=== PATIENT | male | born 1995 | race Caucasian/White ===

== ENCOUNTER 2016-10-15 16:50 | Emergency (ER) | payer BC ==
[~2016-10-15] VITALS: Ht 193 cm; Wt 110.0 kg
--- OUTSIDE RECORDS SUMMARY | 2016-10-15 16:53 | XMS REPORT | Referral Summary ---
Author Author [facility], [facility] Care Organization [facility] Address Unknown Phone Unavailable Care Team Providers Care Capacitor Inspector Name Role Phone No PCP, States Primary Care Physician [phone] Encounter VC Date(s): 07/31/16 - 07/31/16 [facility] [address] [place] [address] Discharge Diagnosis: Abscess of right groin Discharge Disposition: 01-Home or Self Care Attending Physician: Bora Corrales PA-C Admitting Physician: Bora Corrales PA-C Vital Signs Most recent to 1 oldest [Reference Range]: Temperature Tympanic 36.7 degC [36.6-38.1 degC] (07/31/16 3:54 PM) Peripheral Pulse 103 bpm Rate [60-100 bpm] *HI* (07/31/16 3:54 PM) SpO2 98 % (07/31/16 3:54 PM) Problem List Condition Effective Dates Status Health Status Informant Obesity(Confirmed) Active patient Tobacco Active patient user(Confirmed) Allergies, Adverse Reactions, Alerts No Known Medication Allergies Medications aspirin 81 mg oral tablet 81 mg 1 tabs, Oral, Daily, # 30 tabs, 0 Refill(s) Start Date: 07/28/16 Status: Ordered Keflex 500 mg oral capsule 500 mg 1 caps, Oral, QID, X 7 days, # 28 caps, 0 Refill(s), Pharmacy: [id number], 1 caps Oral QID,x7 days Start Date: 07/28/16 Stop Date: 08/04/16 Status: Ordered Results No data available for this section Immunizations No data available for this section Procedures No data available for this section Social History Social History Type Response Smoking Status Current every day smoker; Type: Cigarettes; Tobacco use per day: 1/2 pack or more Assessment and Plan Extracted from: Title: R groin wound Author: Bora Corrales PA-C Date: 07/31/16 Assessment/Plan Abscess of right groin At this point continue with the treatment finished the Bactrim and the Keflex. If he develops severe diarrhea, blood with diarrhea, bowel arteries to follow-up for assessment if his fever returns,if he has new symptoms; follow-up for assessment otherwise follow-up as needed.Work provided work.
--- OUTSIDE RECORDS SUMMARY | 2016-10-15 16:53 | XMS REPORT | Referral Summary ---
Author Author [facility] Organization [facility] Address Unknown Phone Unavailable Care Team Providers Care Dye House Helper Name Role Phone No PCP, States Primary Care Physician [phone] Encounter VC Date(s): 03/08/15 - 03/08/15 [facility] [address] [place] [address] Discharge Disposition: 01-Home or Self Care Attending Physician: Cachorro Barnhart MD Admitting Physician: Cachorro Barnhart MD Vital Signs Most recent to 1 oldest [Reference Range]: Temperature Tympanic 36.8 degC [36.6-38.1 degC] (03/08/15 1:18 PM) Peripheral Pulse 84 bpm Rate [60-100 bpm] (03/08/15 1:18 PM) Respiratory Rate 16 br/min [14-20 br/min] (03/08/15 1:18 PM) Blood Pressure 130/80 mmHg [90-140/60-90 mmHg] (03/08/15 1:18 PM) Problem List Condition Effective Dates Status Health Status Informant Obesity(Confirmed) Active patient Tobacco Active patient user(Confirmed) Allergies, Adverse Reactions, Alerts No Known Medication Allergies Medications naproxen 500 mg oral tablet 500 mg 1 tabs, Oral, BID, # 60 tabs, 0 Refill(s), Pharmacy: [id number], 1 tabs Oral BID,x30 days Start Date: 03/08/15 Stop Date: 04/07/15 Status: Ordered Results No data available for this section Immunizations No data available for this section Procedures No data available for this section Social History Social History Type Response Smoking Status Current some day smoker; Type: Cigarettes Assessment and Plan Extracted from: Title: Office Visit Note Author: Cachorro Barnhart MD Date: 03/08/15 Assessment/Plan Contusion of left shoulder Contusion, hip Wrist contusion Plan: I do not think you have any fractures. You have recently got a new job and you're worried about your ability to perform. I did write restrictions to the left more than 10 pounds with your arms or stand for more than 20 minutes per hour. If you're having problems getting these tasks then return. I did order Naprosyn. Take with food. Follow-up in one week if you 're not improving. Orders: naproxen, 500 mg 1 tabs, Oral, BID, # 60 tabs, 0 Refill(s), Pharmacy: [id number], 1 tabs Oral BID,x30 days
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
--- OUTSIDE RECORDS SUMMARY | 2016-10-15 16:53 | XMS REPORT | Referral Summary ---
Author Author [facility], [facility] Organization [facility] Address Unknown Phone Unavailable Care Team Providers Care Supervisor Maintenance Name Role Phone No PCP, [facility] Primary Care Physician [phone] Encounter VC Date(s): 07/21/16 - 07/21/16 [facility] [address] [place] [address]- Discharge Diagnosis: Cellulitis of right thigh Discharge Diagnosis: Tobacco use Discharge Disposition: 01-Home or Self Care Attending Physician: Bora Corrales PA-C Admitting Physician: Bora Corrales PA-C Vital Signs Most recent to 1 oldest [Reference Range]: Temperature Tympanic 37 degC [36.6-38.1 degC] (07/21/16 4:04 PM) Peripheral Pulse 125 bpm Rate [60-100 bpm] *HI* (07/21/16 4:04 PM) Blood Pressure 124/70 mmHg [90-140/60-90 mmHg] (07/21/16 4:04 PM) SpO2 98 % (07/21/16 4:04 PM) Problem List Condition Effective Dates Status Health Status Informant Obesity(Confirmed) Active patient Tobacco Active patient user(Confirmed) Allergies, Adverse Reactions, Alerts No Known Medication Allergies Medications Bactrim DS 800 mg-160 mg oral tablet 1 tabs, Oral, BID, X 10 days, # 20 tabs, 0 Refill(s), Pharmacy: [facility] [place] [id number] Start Date: 07/21/16 Stop Date: 07/31/16 Status: Ordered Results No data available for this section Immunizations No data available for this section Procedures No data available for this section Social History Social History Type Response Smoking Status Current every day smoker; Type: Cigarettes; Tobacco use per day: 1/2 pack or more Assessment and Plan Extracted from: Title: right thigh Author: Bora Corrales PA-C Date: 07/21/16 Assessment/Plan Cellulitis of right thigh BactrimDS 10 days was initiated. When abscess forms or if it forms he needs to follow-up for draining. If he develops lymph nodeswelling fever significant streaking or worsening infection he needs to follow-up for additional assessment. Tylenol/Ibuprofen as needed for fever or pain. Recommend supportive care. Rest. Practice good hand hygiene. Increase fluids. FU with PCP if not improving, worsening symptoms, or as needed. Questions were answered. Patient verbalized understanding. Patient left in stable condition. Tobacco use Taking cessation recommended.
--- OUTSIDE RECORDS SUMMARY | 2016-10-15 16:53 | XMS REPORT | Referral Summary ---
Author Author [facility], [facility] Care Organization [facility] Address Unknown Phone Unavailable Care Team Providers Care Police Superintendent Name Role Phone No PCP, States Primary Care Physician [phone] Encounter Date(s): 12/30/14 - 12/30/14 [facility] [address] [place] [address] Discharge Diagnosis: Abscess of arm, left Discharge Disposition: 01-Home or Self Care Attending Physician: Venkatesh Madrigal MD Admitting Physician: Venkatesh Madrigal MD Vital Signs Most recent to 1 oldest [Reference Range]: Temperature Tympanic 36.8 degC [36.6-38.1 degC] (12/30/14 7:14 PM) Peripheral Pulse 99 bpm Rate [60-100 bpm] (12/30/14 7:14 PM) Blood Pressure 108/80 mmHg [90-140/60-90 mmHg] (12/30/14 7:14 PM) SpO2 100 % (12/30/14 7:14 PM) Problem List Condition Effective Dates Status Health Status Informant Obesity(Confirmed) Active patient Tobacco Active patient user(Confirmed) Allergies, Adverse Reactions, Alerts No Known Medication Allergies Medications naproxen 500 mg oral tablet 500 mg 1 tabs, Oral, BID, # 60 tabs, 0 Refill(s), Pharmacy: [id number], 1 tabs Oral BID,x30 days Start Date: 03/08/15 Stop Date: 04/07/15 Status: Ordered Results No data available for this section Immunizations No data available for this section Procedures Procedure Date Related Diagnosis Body Site Incision and drainage of abscess (eg, 12/30/14 carbuncle, suppurative hidradenitis, cutaneous or subcutaneous abscess, cyst, furuncle, or paronychia); simple or single Social History Social History Type Response Smoking Status Current some day smoker; Type: Cigarettes Assessment and Plan Extracted from: Title: Ambulatory Patient Education Author: Venkatesh Madrigal MD Date: 12/30 Family Medicine Abscess An abscess is an infected area that contains a collection of pus and debris. It can occur in almost any part of the body. An abscess is also known as a furuncle or boil. CAUSES An abscess occurs when tissue gets infected. This can occur from blockage of oil or sweat glands, infection of hair follicles, or a minor injury to the skin. As the body tries to fight the infection, pus collects in the area and creates pressure under the skin. This pressure causes pain. People with weakened immune systems have difficulty fighting infections and get certain abscesses more often. SYMPTOMS Usually an abscess develops on the skin and becomes a painful mass that is red, warm, and tender. If the abscess forms under the skin, you may feel a moveable soft area under the skin. Some abscesses break open (rupture ) on their own, but most will continue to get worse without care. The infection can spread deeper into the body and eventually into the bloodstream, causing you to feel ill. DIAGNOSIS Your caregiver will take your medical history and perform a physical exam. A sample of fluid may also be taken from the abscess to determine what is causing your infection. TREATMENT Your caregiver may prescribe antibiotic medicines to fight the infection. However, taking antibiotics alone usually does not cure an abscess. Your caregiver may need to make a small cut (incision ) in the abscess to drain the pus. In some cases, gauze is packed into the abscess to reduce pain and to continue draining the area. HOME CARE INSTRUCTIONS Only take [id number] or prescription medicines for pain, discomfort, or fever as directed by your caregiver. If you were prescribed antibiotics, take them as directed. Finish them even if you start to feel better. If gauze is used, follow your caregiver's directions for changing the gauze. To avoid spreading the infection: Keep your draining abscess covered with a bandage. Wash your hands well. Do not share personal care items, towels, or whirlpools with others. Avoid skin contact with others. Keep your skin and clothes clean around the abscess. Keep all follow-up appointments as directed by your caregiver. SEEK MEDICAL CARE IF: You have increased pain, swelling, redness, fluid drainage, or bleeding. You have muscle aches, chills, or a general ill feeling. You have a fever. MAKE SURE YOU: Understand these instructions. Will watch your condition. Will get help right away if you are not doing well or get worse. Document Released: 04/18/2006 Document Revised: 01/07/2013 Document Reviewed: [employer] Patient Information 2014 [employer]. No follow up information was provided. Extracted from: Title: abscess/vesicle left forearm Author: Venkatesh Madrigal MD Date: 12/30 Impression and Plan Diagnosis Abscess of arm, left (ICD9 682.3, Discharge, Medical). Plan: The pustule of the left forearm was prepped in the usual sterile fashion , then incised with a #11 scalpel blade,and clear drainage obtained, which was cultured., LEANDRO and bandaid applied. Take the sulfa antibiotic as prescribed. Followup as needed.. Orders Orders (Selected) Outpatient Orders Order Drain Skin Abscess, Simple/Single 48549: Office Visit Level 3 Est 46321: Prescriptions Prescribed sulfamethoxazole-trimethoprim 800 mg-160 mg oral tablet: 1 tabs, Oral, BID, for 10 days, 20 tabs, 0 Refill(s). Dx/Order Association Plan: Diagnosis: Abscess of arm, left Comment: Ordered: Drain Skin Abscess, Simple/Single 45704; 12/30/14 22:00: 00 CDT, 1, Abscess of arm, left Office Visit Level 3 Est 75970; 12/30/14 22:00:00 CDT, 25, Abscess of arm, left Additional Orders: Comment: Ordered: sulfamethoxazole-trimethoprim 800 mg-160 mg oral tablet,1 tabs, Oral, BID, X 10 days, # 20 tabs, 0 Refill(s), Pharmacy: [facility] [id number] End of Orders .
--- OUTSIDE RECORDS SUMMARY | 2016-10-15 16:53 | XMS REPORT | Referral Summary ---
Author Author [facility], [facility] Organization [facility] Address Unknown Phone Unavailable Care Team Providers Care Front Tender Name Role Phone No PCP, [facility] Primary Care Physician [phone] Encounter VC Date(s): 07/25/16 - 07/25/16 [facility] [address] [place] [address]- Discharge Diagnosis: Abscess of right thigh Discharge Disposition: 01-Home or Self Care Attending Physician: Bora Corrales PA-C Admitting Physician: Bora Corrales PA-C Vital Signs Most recent to 1 oldest [Reference Range]: Temperature Tympanic 36.5 degC [36.6-38.1 degC] *LOW* (07/25/16 4:50 PM) Peripheral Pulse 104 bpm Rate [60-100 bpm] *HI* (07/25/16 4:50 PM) Blood Pressure 110/62 mmHg [90-140/60-90 mmHg] (07/25/16 4:50 PM) SpO2 98 % (07/25/16 4:50 PM) Problem List Condition Effective Dates Status Health Status Informant Obesity(Confirmed) Active patient Tobacco Active patient user(Confirmed) Allergies, Adverse Reactions, Alerts No Known Medication Allergies Medications Bactrim DS 800 mg-160 mg oral tablet 1 tabs, Oral, BID, X 10 days, # 20 tabs, 0 Refill(s), Pharmacy: [facility] [id number] Start Date: 07/21/16 Stop Date: 07/31/16 Status: Ordered Results No data available for this section Immunizations No data available for this section Procedures No data available for this section Social History Social History Type Response Smoking Status Current every day smoker; Type: Cigarettes; Tobacco use per day: 1/2 pack or more Assessment and Plan No data available for this section
--- OUTSIDE RECORDS SUMMARY | 2016-10-15 16:53 | XMS REPORT | Referral Summary ---
Author Author [facility], [facility] Organization [facility] Address Unknown Phone Unavailable Care Team Providers Care Bag Repairer Name Role Phone No PCP, States Primary Care Physician [phone] Encounter VC Date(s): 07/27/16 - 07/27/16 [facility] [address] [place] [address]- Discharge Diagnosis: Abscess of right groin Discharge Disposition: 01-Home or Self Care Attending Physician: Bora Corrales PA-C Admitting Physician: Bora Corrales PA-C Vital Signs Most recent to 1 oldest [Reference Range]: Temperature Tympanic 37.2 degC [36.6-38.1 degC] (07/27/16 6:00 PM) Peripheral Pulse 94 bpm Rate [60-100 bpm] (07/27/16 6:00 PM) Blood Pressure 100/68 mmHg [90-140/60-90 mmHg] (07/27/16 6:00 PM) SpO2 98 % (07/27/16 6:00 PM) Problem List Condition Effective Dates Status Health Status Informant Obesity(Confirmed) Active patient Tobacco Active patient user(Confirmed) Allergies, Adverse Reactions, Alerts No Known Medication Allergies Medications Bactrim DS 800 mg-160 mg oral tablet 1 tabs, Oral, BID, X 10 days, # 20 tabs, 0 Refill(s), Pharmacy: [facility] [id number] Start Date: 07/21/16 Stop Date: 07/31/16 Status: Ordered Results No data available for this section Immunizations No data available for this section Procedures No data available for this section Social History Social History Type Response Smoking Status Current every day smoker; Type: Cigarettes; Tobacco use per day: 1/2 pack or more Assessment and Plan Extracted from: Title: Repack wound Author: Bora Corrales PA-C Date: 07/27/16 Assessment/Plan Abscess of right groin Procedure: The area was cleansed with Betadine,then using clean techniquethe. Her Tylenolwound was packed with 4 inches of quarter inch gauze. Patient does have a low-grade temperature [id number] I asked him to follow up tomorrow for aboutwound assessment. Ordered: Drain Skin Abscess, Simple/Single 30230
--- OUTSIDE RECORDS SUMMARY | 2016-10-15 16:53 | XMS REPORT | Referral Summary ---
Author Author [facility], [facility] Care Organization Via BALNKA [facility]rez [facility] Address Unknown Phone Unavailable Care Team Providers Care Mulling Machine Operator Name Role Phone No PCP, States Primary Care Physician [phone] Encounter Date(s): 07/28/16 - 07/28/16 [facility], [address] [place] [address]- Discharge Diagnosis: Cellulitis of right groin Discharge Diagnosis: Abscess of right groin Discharge Disposition: 01-Home or Self Care Attending Physician: Bora Corrales PA-C Admitting Physician: Bora Corrales PA-C Vital Signs Most recent to 1 oldest [Reference Range]: Temperature Tympanic 37.2 degC [36.6-38.1 degC] (07/28/16 3:10 PM) Peripheral Pulse 108 bpm Rate [60-100 bpm] *HI* (07/28/16 3:10 PM) Blood Pressure 118/68 mmHg [90-140/60-90 mmHg] (07/28/16 3:10 PM) SpO2 98 % (07/28/16 3:10 PM) Problem List Condition Effective Dates Status Health Status Informant Obesity(Confirmed) Active patient Tobacco Active patient user(Confirmed) Allergies, Adverse Reactions, Alerts No Known Medication Allergies Medications aspirin 81 mg oral tablet 81 mg 1 tabs, Oral, Daily, # 30 tabs, 0 Refill(s) Start Date: 07/28/16 Status: Ordered Bactrim DS 800 mg-160 mg oral tablet 1 tabs, Oral, BID, X 10 days, # 20 tabs, 0 Refill(s), Pharmacy: [facility] [id number] Start Date: 07/21/16 Stop Date: 07/31/16 Status: Ordered Bactrim DS 800 mg-160 mg oral tablet 1 tabs, Oral, BID, X 3 days, # 6 tabs, 0 Refill(s), Pharmacy: [facility] [id number] Start Date: 07/28/16 Stop Date: 07/31/16 Status: Ordered Keflex 500 mg oral capsule 500 mg 1 caps, Oral, QID, X 7 days, # 28 caps, 0 Refill(s), Pharmacy: [facility] [id number], 1 caps Oral QID,x7 days Start Date: 07/28/16 Stop Date: 08/04/16 Status: Ordered Results Hematology Most recent to 1 oldest [Reference Range]: WBC [5.0-10.0 12.7 10*3/uL 10*3/uL] *HI* (07/28/16 3:32 PM) RBC [3.70-5.20] 4.29 (07/28/16 3:32 PM) Hgb [12.0-16.0 13.2 gm/dL gm/dL] (07/28/16 3:32 PM) Hct [40.0-54.0 %] 40.7 % (07/28/16 3:32 PM) MCV [80.0-96.0 fL] 94.9 fL (07/28/16 3:32 PM) MCH [26.0-34.0 pg] 30.8 pg (07/28/16 3:32 PM) MCHC [32.0-36.0 32.4 gm/dL gm/dL] (07/28/16 3:32 PM) RDW [0.0-14.5 %] 12.8 % (07/28/16 3:32 PM) Platelet [150-400 414 10*3/uL 10*3/uL] *HI* (07/28/16 3:32 PM) MPV [8.8-14.8 fL] 11.0 fL (07/28/16 3:32 PM) Neutrophils [50-70 66 % %] (07/28/16 3:32 PM) Band Man [0-6 %] 3 % (07/28/16 3:32 PM) [place] Man [0-1 %] 1 % (07/28/16 3:32 PM) Lymphocytes [20-40 22 % %] (07/28/16 3:32 PM) Monocytes [4-8 %] 5 % (07/28/16 3:32 PM) Eosinophils [0-6 %] 3 % (07/28/16 3:32 PM) Basophils [0-2 %] 0 % (07/28/16 3:32 PM) Neutro Absolute 8.76 [2.50-7.00] *HI* (07/28/16 3:32 PM) Lymph Absolute 2.79 [1.00-4.00] (07/28/16 3:32 PM) [place] Absolute 0.64 [0.20-0.80] (07/28/16 3:32 PM) Eos Absolute 0.38 [0.00-0.60] (07/28/16 3:32 PM) Baso Absolute 0.00 [0.00-0.30] (07/28/16 3:32 PM) Differential Manual *ABN* (07/28/16 3:32 PM) Immunizations No data available for this section Procedures Procedure Date Related Diagnosis Body Site Collection of venous blood by venipuncture 07/28/16 Social History Social History Type Response Smoking Status Current every day smoker; Type: Cigarettes; Tobacco use per day: 1/2 pack or more Assessment and Plan Extracted from: Title: R groin wound check Author: Bora Corrales PA-C Date: 07/28/16 Assessment/Plan Abscess of right groin The superior tunnel was repacked, patient does have induration noted distally and proximally but erythema is much improved the induration at the distalabscessis decreased compared to yesterday. Cellulitis of right groin Patient hasseveral days of Bactrim remaining, I prescribed a seven-day course. I extended this to 10 days by adding a prescription for 3 more days of Bactrim DS No. 6, also added Keflex 500 mg 4 times a day 7 days. Recommended the patient develops worsening symptoms higher feverand rigors chillsfollow-up in ER over the weekend. Otherwise follow-up on Sunday, reassess the woundand go over the culture results. Fever Tylenol/Ibuprofen as needed for fever or pain. Recommend supportive care. Rest. Practice good hand hygiene. Increase fluids. FU with PCP if not improving, worsening symptoms, or as needed. Questions were answered. Patient verbalized understanding. Patient left in stable condition. Ordered: CBC w/ Differential
--- OUTSIDE RECORDS SUMMARY | 2016-10-15 16:53 | XMS REPORT | Referral Summary ---
Author Author [facility], [facility] Care Organization [facility] Address Unknown Phone Unavailable Care Team Providers Care Medical Dermatologist Name Role Phone No PCP, States Primary Care Physician [phone] Encounter VC Date(s): 07/26/16 - 07/26/16 [facility] [address] [place] [id number]- Discharge Disposition: 01-Home or Self Care Attending Physician: Bora Corrales PA-C Admitting Physician: Bora Corrales PA-C Vital Signs Most recent to 1 oldest [Reference Range]: Temperature Tympanic 36.3 degC [36.6-38.1 degC] *LOW* (07/26/16 6:10 PM) Peripheral Pulse 80 bpm Rate [60-100 bpm] (07/26/16 6:10 PM) Blood Pressure 116/60 mmHg [90-140/60-90 mmHg] (07/26/16 6:10 PM) SpO2 99 % (07/26/16 6:10 PM) Problem List Condition Effective Dates Status Health Status Informant Obesity(Confirmed) Active patient Tobacco Active patient user(Confirmed) Allergies, Adverse Reactions, Alerts No Known Medication Allergies Medications Bactrim DS 800 mg-160 mg oral tablet 1 tabs, Oral, BID, X 10 days, # 20 tabs, 0 Refill(s), Pharmacy: [facility] [id number] Start Date: 07/21/16 Stop Date: 07/31/16 Status: [...]
[2016-10-15 17:02] VITALS: TEMP 98.3; Ht 193 cm; Wt 110.0 kg
[2016-10-15] MEDS ORDERED: NO DAILY MEDS (17:41)
--- NOTE | 2016-10-15 17:54 | NUR ---
PROVIDER DR. FLANNERY AT BEDSIDE FOR EXAM.
[2016-10-15] MEDS ORDERED: PENI500T2 PO (17:58)
[2016-10-15] MEDS ORDERED: HYDR-4246 PO (17:58)
--- NOTE | 2016-10-15 17:59 | ERPDOC ---
Departure Disposition Decision Date: Oct 15, 2016 Disposition Decision Time: 17:56 Disposition: 01 DISCHARGED HOME, SELF-CARE Impression Impression Impression: Primary Impression: Pain, dental Severity: Mild Condition: Improved Seen By: Physician only Referrals: [facility] 2 Days Patient Instructions: Dental Caries (ED), Toothache (ED), ED Dental Follow-up Problems/Meds/Labs Reviewed?: Yes Medications reviewed and manag: Yes Follow up care ordered?: Yes Mental Status: Alert, Oriented Scripts Penicillin V Potassium (Penicillin V Potassium) 500 Mg Tablet 1 TAB PO QID for 10 Days, #40 TAB 0 Refills Prov: CLAIRE FLANNERY DO 10/15/16 Hydrocodone/Acetaminophen (Driscoll 5-325 Tablet) 5-325 Tablet 1 TAB PO Q4HR Y for PAIN for 3 Days, #18 TAB 0 Refills Prov: CLAIRE FLANNERY DO 10/15/16 HPI - EENT General General Chief Complaint: Toothache Stated Complaint: TOOTH/GUM PAIN Time Seen by Provider: 17:56 Source: patient Exam Limitations: no limitations HPI - EENT General Initial Comments 21-year-old male presents to the emergency department with a chief complaint of dental pain. Pain is located in the right lower posterior teeth. Patient noted onset of symptoms 2-3 days ago. Symptoms have been persistent in nature since onset. Patient denies any trauma or injury. Patient has a history of poor dentition. Patient has a history of similar symptoms in the past. Pain is moderate. Pain is dull. There is no radiation. Pain increases with chewing and improves with rest and analgesia. Patient denies any other complaints or associated symptoms. Patient was at home when the symptoms began. Symptoms had a gradual progression in onset. Allergies: Coded Allergies: No Known Allergies (Unverified , 10/15/16) Past History Past Medical History Pt denies signifigant H Surgical History Denies Surgeries Family History Family History: Negative Social History Smoking Status: Never smoker Substance Use Type: does not use Alcohol Intake: none Review of Systems Constitutional Constitutional: DENIES: chills, fever Eyes General: DENIES: erythema, exudate Lids/Accessories: DENIES: erythema, swelling Vision: DENIES: acuity, blurring ENMT Ears: DENIES: drainage, erythema, pain Hearing: DENIES: hearing loss Balance: DENIES: ataxia, falling to one side Sinuses: DENIES: congestion, pain Nose: DENIES: nosebleeds, pain Mouth/Throat: DENIES: painful swallowing, sore throat Teeth: pain Jaw: DENIES: pain Cardiovascular Cardiac: DENIES: chest pain, dyspnea on exertion Rhythm/Rate: DENIES: irregular beat, palpitations Vascular: DENIES: pedal edema, unilateral swelling Pulmonary Respiratory: DENIES: cough, dyspnea, pleuritic chest pain, sputum GI Upper Abdomen: DENIES: nausea, pain, vomiting Lower Abdomen: DENIES: diarrhea, pain General: DENIES: dysuria, pain Musculoskeletal General: DENIES: pain, tenderness Integumentary Skin: DENIES: itching, rash Neurological General: DENIES: headache, numbness, weakness Psychiatric Psychiatric: DENIES: emotional instability, suicidal ideation/attempt Endocrine Endocrine: DENIES: polydipsia, polyphagia Hematologic/Lymphatic Hematologic/Lymphatic: DENIES: frequent nosebleeds, lymphadenopathy Allergic/Immunological Allergic/Immunoligical: DENIES: allergic reactions, hives Physical Exam General General Nourishment: well nourished, well developed, appears stated age, no acute distress, adult General Body Habitus: well groomed Vitals and Pain First Documented Vital Signs Date Time Temp Pulse Resp B/P Pulse Ox O2 Delivery O2 Flow Rate FiO2 10/15/16 17:02 98.3 88 14 148/71 100 10/15/16 18:07 Room Air Weight: Kilograms: 110.000 Height (feet): 6 Height (inches): 4.00 Triage Pain Scale: RN VS reviewed by Provider: Yes Normal Exams: Head: Normocephalic w/o trauma Eyes: Pupils are PERRLA w/ EOMI, No scleral icterus, irritation, or foreign bodies noted ENMT: No facial trauma, nasal exudates, pharyngeal erythema, or exudates are noted Neck: Full range of motion, without adenopathy, JVD, bruits or thyromegaly Chest/Resp: Clear all marley, with good airflow, and symmetry bilaterally CV: Regular rate and rhythm, without murmur or gallop, Pulses 2+ all extremities, capillary refill, <2 seconds all ext., no pedal edema noted Abdomen: Bowel sounds positive, soft, non-tender, non-distended, no hepatosplenomegaly, masses or bruits noted Lymphatic: No lymphadenopathy, or lymphedema noted Musculoskeletal: No tenderness, or deformity noted, good range of motion, all extremities Integumentary: No rashes, hives, or bruising noted, hair and nails, without abnormality Neurologic: Patient is alert, and oriented, cranial nerves, motor/sensory/ cerebellar, exams w/o gross deficits, to observation Psychiatric: Patient exhibits, appropriate attention, emotion and affect ENMT (brief) Comments Oral - tooth #31 is tender to percussion. Tooth has dental caries with erosion present. No sign of abscess. Uvula is midline. Voice is normal. Handling secretions without difficulty. No elevation of tongue. No facial swelling or cellulitis. No pharyngeal erythema. No tonsillar exudate. Differential Diagnoses Considering: Other (dental pain/dental abscess/dental trauma/dental caries) Progress Progress Progress Patient is provided with prescriptions for Penicillin VK and Driscoll. Patient is discharged home in improved condition. Patient is to follow up as instructed. Patient is to return to the emergency Department if his condition worsens or changes in any manner. Patient is in agreement with the current plan of management. Patient is discharged home in improved condition. Patient declined offered analgesic medication in the emergency department. CLAIRE FLANNERY DO Oct 15, 2016 17:59
[2016-10-15 18:07] VITALS: BP 129/68; PULSE 81; RESP 16; O2SAT 98
--- NOTE | 2016-10-15 18:07 | NUR ---
DISCHARGE WRITTEN INSTRUCTIONS WITH [facility]ENICILLIN RX REVIEWED AND SENT WITH PT. PT VERBALIZES UNDERSTANDING OF DI AND MEDICATIONS, DENIES QUESTIONS. PT AMBULATES OUT OF ER WITH STEADY GAIT AT THIS TIME.
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
== END 2016-10-15 18:07 | disposition home or self-care (01) ==
LOC: ED 16:50
DX: K02.9 Dental caries, unspecified (principal)